=== PATIENT | female | born 1945 | race Caucasian/White ===

== ENCOUNTER 2017-10-18 13:18 | Outpatient (CLI) | payer MEDICARE, OTHER | END 2017-10-18 13:19 | disposition home or self-care (01) | LOC: BICMRI 13:18 | PROVIDERS: ATTEND Family Medicine | DX: G04.91 Myelitis, unspecified (principal); M47.896 Other spondylosis, lumbar region; M47.892 Other spondylosis, cervical region; M99.81 Other biomechanical lesions of cervical region | CPT/HCPCS: 72156; 72157; 72158 ==

== ENCOUNTER 2017-12-30 23:09 | Emergency (ER) | payer MEDICARE, OTHER ==
[2017-12-30] MEDS ORDERED: Famotidine 20 MG TAB ONE (23:52)
[2017-12-30] MEDS ORDERED: Dexamethasone 4 mg/ml Vial ONE (23:53)
== END 2017-12-31 00:30 | disposition home or self-care (01) ==
LOC: ERS 23:09
DX: T78.40XA Allergy, unspecified, initial encounter (principal); M19.90 Unspecified osteoarthritis, unspecified site; G62.9 Polyneuropathy, unspecified; Z87.891 Personal history of nicotine dependence; Z79.899 Other long term (current) drug therapy
CPT/HCPCS: 96372; J1100

== ENCOUNTER 2018-03-06 09:26 | Outpatient (CLI) | payer MEDICARE, OTHER ==
--- NOTE | 2018-03-06 12:30 | CT ---
CT RIGHT HIP WITH AND WITHOUT IV CONTRAST: INDICATIONS: Concern for right hip mass. CONTRAST: Isovue-370 70 mL. FINDINGS: There is prominent muscular atrophy of the right gluteus minimus and medius musculature, which was no t fully demonstrated on the prior exam. There is some mild suspected muscular atrophy involving the right gluteus minimus on the MR examination dated 01/22/2015. Beam scatter artifact slightly limits evaluation of the tendons. No definite drainable fluid collection is evident. No lymphadenopathy is noted. No soft tissue mass is seen within the right hip region. The visualized aspects of the bone prosthetic interface appears within normal limits for the right hip prosthesis. There are mild dege nerative changes of the right SI joint. No acute fracture is demonstrated. IMPRESSION: 1. No drainable periarticular fluid collection or mass demonstrated. 2. No lymphadenopathy is noted. 3. Worsening muscular atrophy of the right gluteus medius and minimus musculature, when compared to a prior MR examination dated 01/22/2015. POS: ALFONSO
[2018-03-06] MEDS ORDERED: Iopamidol 370 76% 100 ML VIAL ONE (14:02)
== END 2018-03-06 09:27 | disposition home or self-care (01) ==
LOC: BICCT 09:26
PROVIDERS: ATTEND Orthopaedic Surgery
DX: Z47.1 Aftercare following joint replacement surgery (principal); Z96.641 Presence of right artificial hip joint; M62.58 Muscle wasting and atrophy, not elsewhere classified, other site
CPT/HCPCS: 82565

== ENCOUNTER 2018-08-07 15:25 | Outpatient (CLI) | payer MEDICARE, OTHER ==
--- NOTE | 2018-08-07 17:05 | MRI ---
FEXAM: MRI left forefoot without contrast PROVIDED CLINICAL HISTORY: Neuroma COMPARISON: None FINDINGS: There is abnormal masslike diminished T1 signal intensity and corresponding isointense to hypointense T2 signal intensity within the second-third metatarsal interspace at the level of the metatarsal hea ds. A similar masslike focus of signal alteration is present in the third-fourth metatarsal interspac e at the level of the metatarsal heads. Conspicuous first MTP joint space loss and periarticular osteophyte formation with subcortical signal alteration involving both the great toe proximal phalanx and first metatarsal head. No focal concern ing regional marrow signal abnormality is apparent. Regional muscular signal appears normal. The dorsal extensor and plantar flexor tendons demonstrate an intact MR appearance. The MTP joint cap sules appear intact. There is no evidence for significant intermetatarsal bursal fluid. IMPRESSION: 1. Findings compatible with neuromas within the second-third and third-fourth metatarsal interspaces. 2. Severe first MTP osteoarthrosis.
== END 2018-08-07 15:26 | disposition home or self-care (01) ==
LOC: BICMRI 15:25
PROVIDERS: ATTEND Podiatrist
DX: D36.13 Benign neoplasm of peripheral nerves and autonomic nervous system of lower limb, including hip (principal); M19.072 Primary osteoarthritis, left ankle and foot

== ENCOUNTER 2018-09-23 10:19 | Day surgery (SDC) | payer MEDICARE, OTHER ==
[2018-09-20 14:07] VITALS: BMI 32.8
[2018-09-23] MEDS ORDERED: Bupivacaine PF 0.5% 30 ML VIAL ONE (10:54)
[2018-09-23] MEDS ORDERED: Neomycin-Polymyxin 1 ML AMP ONE (10:54)
[2018-09-23 11:32] LABS: Hemoglobin 13.6 g/dL (12.0-16.0); Mean Corpuscular Hemoglobin 29.8 pg (27.0-31.0); Mean Corpuscular Volume 87.6 fL (78.0-98.0); Mean Platelet Volume 8.9 fL (7.4-10.4); Platelet Count 214 thou/uL (130-400); RBC Distribution Width 12.6 % (11.5-14.5); Red Blood Cell (RBC) Count 4.58 mill/uL (4.20-5.40); White Blood Cell (WBC) Count 7.2 thou/uL (4.8-10.8)
[2018-09-23] MEDS ORDERED: Fentanyl 100 MCG/2 ML VIAL ONE (11:32)
[2018-09-23] MEDS ORDERED: methylPREDNISolone Acetate 40 mg/ml Vial ONE (12:17)
[2018-09-23] MEDS ORDERED: Lidocaine 1% PF 5 ML VIAL ONE (13:28)
[2018-09-23] MEDS ORDERED: Ondansetron PF 4 MG/2 ML Vial ONE (13:28)
[2018-09-23] MEDS ORDERED: Dexamethasone 20 MG/5 ML VIAL ONE (13:28)
[2018-09-23] MEDS ORDERED: PROPOFOL 200 MG/20 ML VIAL ONE (13:28)
[2018-09-23] MEDS ORDERED: Ketorolac Tromethamine 30 MG/ML VIAL ONE (13:28)
--- NOTE | 2018-09-24 08:04 | OP ---
DATE OF PROCEDURE: 09/23/2018 PREOPERATIVE DIAGNOSES: Neuroma, left foot second and third interspaces. POSTOPERATIVE DIAGNOSIS: Neuroma, left foot second and third interspaces. PROCEDURE PERFORMED: Excision of neuroma of left foot second and third interspaces. ANESTHESIA: General with ankle block, totalling 7 mL of 0.5% plain Marcaine. HEMOSTASIS: A well-padded pneumatic ankle tourniquet utilized for the beginning of the case, deflated after excision of neuromas. ESTIMATED BLOOD LOSS: Less than 100 mL. PATHOLOGY: Neuroma tissue sent to Pathology, labeled second interspace and labeled third interspace, separate container was used. DATABASE OPERATOR: None. DESCRIPTION OF PROCEDURE: The patient was taken to the operating room, placed on the operating room table in supine position. After general anesthesia was achieved, a left ankle block was performed. Next, the left lower extremity was scrubbed and draped in usual surgical manner. A well-padded pneumatic ankle tourniquet was placed prior to draping. Attention was directed to the dorsal left foot. A serpentine incision was centered over the third metatarsal was performed. This allowed exposure to the second and third interspaces. Using sharp and blunt dissection and electrocauterization was necessary, the surgical site was deepened into the second and third interspaces. With plantar pressure, a large neuroma mass was seen at both the second and third interspaces. Next, with care, the intermetatarsal ligament was transected at the second and third intermetatarsal spaces. Next, a quarter-inch Vel drain was passed beneath the neuromas in the second and third interspaces separately and each [place] was clamped. Attention was directed to the third interspace and using sharp and blunt dissection to trace the neuroma back to the common branch, proximal to the metatarsal heads, the nerve was transected sharply. Next, caring out the sharp and blunt dissection was carried out distally to identify the digital branches. At this time, the digital branches were transected sharply and the neuroma was taken and sent off to Pathology and marked appropriately. The same dissection was performed for the second interspace. The pneumatic tourniquet was deflated. Venous bleeding was noted. No pulsatile bleeding seen. A quarter-inch [place] drain was then placed exiting medial to the incision centrally located over the first interspace. Deep closure was performed with 3-0 Vicryl suture. Skin closure was achieved with 4-0 nylon suture. The drain was functional after skin closure. Next, a 9:1 mixture of 0.5% plain Marcaine and 1 mL of 4 mg/mL of dexamethasone phosphate was injected at the surgical site, 5 mL per second and third interspaces. Next, Xeroform dressings were applied to the incision sites. The exiting [place] drain was well-padded. Dressings were then completed with 4x4 gauze, Kylah, and an Eliezer bandage. The patient was fitted with a postoperative shoe. The patient tolerated the anesthesia and procedure well. Hyperemic effect to the foot and digits noted after deflation of the pneumatic cuff. The patient was then transferred to the recovery with vital signs stable. The patient is scheduled with me next week for the first bandage change. She will be called this evening to check on her status. Job ID: [id number]
--- NOTE | 2018-09-25 11:51 | EKG ---
Test Reason : PREOP Blood Pressure : / mmHG Vent. Rate : 070 BPM Atrial Rate : 070 BPM P-R Int : 168 ms QRS Dur : 086 ms QT Int : 408 ms P-R-T Axes : 047 004 035 degrees QTc Int : 440 ms Normal sinus rhythm Cannot rule out Inferior infarct , age undetermined Abnormal ECG When compared with ECG of 28-MAR-2016 12:46, No significant change was found Confirmed by DR. Gregory PEÑALOZA ([id number]) on 09/25/2018 11:51:00 AM Referred By: SIMONA Confirmed By:DR. Gregory PEÑALOZA
== END 2018-09-23 15:25 | disposition home or self-care (01) ==
LOC: SDC 10:19
PROVIDERS: ATTEND Podiatrist
PROC: 01BG0ZZ Excision of Tibial Nerve, Open Approach (ICD-10-PCS; principal; 2018-09-23)
PROC: 01BG0ZZ Excision of Tibial Nerve, Open Approach (ICD-10-PCS; 2018-09-23)
DX: G57.62 Lesion of plantar nerve, left lower limb (principal); M19.90 Unspecified osteoarthritis, unspecified site; Z87.891 Personal history of nicotine dependence; Z88.1 Allergy status to other antibiotic agents; Z88.2 Allergy status to sulfonamides; Z88.5 Allergy status to narcotic agent; Z88.7 Allergy status to serum and vaccine; Z88.8 Allergy status to other drugs, medicaments and biological substances
CPT/HCPCS: 36415; 85027; 88304; 93005; 93010; J0690; J1030; J1100; J1885; J2001; J2405; J2704; J3010; S0020

== ENCOUNTER 2019-11-06 08:19 | Inpatient (IN) | payer MEDICARE, OTHER ==
[2019-11-06 09:02] LABS: Hemoglobin 14.1 g/dL (12.0-16.0); Mean Corpuscular HGB CONC 32.6 g/dL (32.0-36.0); Mean Corpuscular Hemoglobin 29.5 pg (27.0-31.0); Mean Corpuscular Volume 90.4 fL (78.0-98.0); Mean Platelet Volume 8.4 fL (7.4-10.4); Platelet Count 255 thou/uL (130-400); Red Blood Cell (RBC) Count 4.79 mill/uL (4.20-5.40)
[2019-11-06 09:15] LABS: ALT (SGPT) 20 U/L (8-55); AST (SGOT) 17 U/L (5-34); Albumin 3.9 g/dL (3.4-4.8); Alkaline Phosphatase 107 U/L (40-110); Anion Gap 12 mmol/L (10-20); BUN (Urea Nitrogen) 6 mg/dL (9.8-20.1); Bilirubin, Total 0.3 mg/dL (0.2-1.2); CK (CPK) 272 U/L (29-168); Calc. Creatinine Clearance 0 mL/min (70-130); Calcium 9.1 mg/dL (7.8-10.44); Carbon Dioxide 25 mmol/L (23-31); Chloride 98 mmol/L (98-107); Estimated GFR-MDRD 78; Globulin 3.5 g/dL (2.4-3.5); Glucose 103 mg/dL (83-110); Potassium 4.3 mmol/L (3.5-5.1); Protein, Total 7.4 g/dL (6.0-8.3); Sodium 131 mmol/L (136-145)
--- NOTE | 2019-11-06 09:16 | RAD ---
Exam: Chest one view HISTORY:Productive cough, x1 week. Low O2 sats. Shortness of breath. Comparison: 03/27/2019 FINDINGS: Cardiac silhouette: Normal Aorta: Unremarkable Pulmonary vessels: Normal Costophrenic angles: Clear LUNGS: Patchy interstitial opacities throughout the lung parenchyma with a more focal right upper lob e infiltrate. Pneumothorax: None Osseous abnormalities: None IMPRESSION: Interstitial and alveolar opacities. Continued surveillance.
[2019-11-06 09:26] LABS: Band 1 % (5-11); Eosinophils 37 % (0-10); Lymphocytes 14 % (21-51); MDiff Complete? YES; Monocytes 10 % (0-10); Neutrophil 35 % (42-75); Platelet Morphology Comment Appears Adequate; RBC Morphology Normal
[2019-11-06] MEDS ORDERED: cefTRIAXone\\ROCEPHIN 2 GM VIAL ONE (09:29)
--- NOTE | 2019-11-06 10:22 | CT ---
CT angiogram chest with IV contrast and 3-D imaging HISTORY: Dyspnea. Abnormal chest radiograph. COMPARISON: 07/06/2011. FINDINGS: There is good contrast opacification pulmonary arteries and thoracic aorta with normal bran sary of the great vessels at the aortic arch. Patchy predominantly peripheral areas of interstitial thickening throughout each all the upper lobes more than the lower. There has been slight progression of gas and mild bilateral lower lobe tubular bronchiectasis since the prior exam. Scattered sub-centimeter subpleural and pleural-based nodules involve each lung. The largest is 0.8 c m at the posterior medial aspect of the right lower lobe superior segment and is unchanged from the prior exam. No pleural fluid or pneumothorax. Small hiatal hernia. IMPRESSION : No CT evidence of pulmonary embolus. No lobar pneumonia or acute inflammation is evident. Multifocal areas of interstitial lung disease gong ve progressed slightly since the 2012 exam. Multiple small bilateral nodules are overall stable. Small hiatal hernia.
[2019-11-06] MEDS ORDERED: Azithromycin 500 MG VIAL ONE (10:39)
[2019-11-06] MEDS ORDERED: Iopamidol 370 76% 100 ML VIAL ONE (11:26)
[2019-11-06] MEDS ORDERED: Acetaminophen 325 MG TAB PO PRN (14:15)
[2019-11-06] MEDS ORDERED: Ondansetron ODT 4 MG TAB SL PRN (14:15)
[2019-11-06 15:19] VITALS: BMI 31.3
[2019-11-06] MEDS ORDERED: methylPREDNISolone Sod Succ 40 MG VIAL IVP SCH (15:30)
[2019-11-06] MEDS: Guaifenesin DM 100-10/5 ML UDCUP PO PRN (18:35)
[2019-11-06] MEDS: Famotidine 20 MG TAB PO SCH (21:00)
[2019-11-07 05:35] LABS: #Basophils 0.1 thou/uL (0.0-0.2); #Eosinphils 0.2 thou/uL (0.0-0.7); #Lymphocytes 2.8 thou/uL (1.20-3.40); #Monocytes 1.2 thou/uL (0.11-0.59); #Neutrophils 8.4 thou/uL (1.40-6.50); %Basophils 0.8 % (0.0-1.0); %Eosinophils 1.5 % (0.0-10.0); %Lymphocytes 22.1 % (21.0-51.0); %Monocytes 9.4 % (0.0-10.0); %Neutrophils 66.2 % (42.0-75.0); Hemoglobin 13.7 g/dL (12.0-16.0); Mean Corpuscular HGB CONC 32.7 g/dL (32.0-36.0); Mean Corpuscular Hemoglobin 29.1 pg (27.0-31.0); Mean Corpuscular Volume 89.1 fL (78.0-98.0); Mean Platelet Volume 8.1 fL (7.4-10.4); Platelet Count 284 thou/uL (130-400); RBC Distribution Width 12.1 % (11.5-14.5); White Blood Cell (WBC) Count 12.7 thou/uL (4.8-10.8)
[2019-11-07 05:54] LABS: Anion Gap 12 mmol/L (10-20); BUN (Urea Nitrogen) 7 mg/dL (9.8-20.1); Calc. Creatinine Clearance 99 mL/min (70-130); Calcium 9.3 mg/dL (7.8-10.44); Carbon Dioxide 24 mmol/L (23-31); Chloride 101 mmol/L (98-107); Estimated GFR-MDRD 82; Glucose 109 mg/dL (83-110); Potassium 4.2 mmol/L (3.5-5.1); Sodium 133 mmol/L (136-145)
[2019-11-07] MEDS: Acetaminophen 325 MG TAB PO PRN (09:26)
[2019-11-07] MEDS: methylPREDNISolone Sod Succ 40 MG VIAL IVP SCH (09:27)
[2019-11-07] MEDS: Famotidine 20 MG TAB PO SCH (09:31)
[2019-11-07] MEDS: Enoxaparin Sodium 40 MG/0.4 ML SYRINGE SC SCH (09:32)
--- NOTE | 2019-11-07 10:14 | HP ---
PRIMARY CARE PHYSICIAN: Dr. Rincon. CHIEF COMPLAINT: "My cough won't go away." HISTORY OF PRESENT ILLNESS: The patient is a pleasant 73-year-old female with no significant past medical history, who presents to the ER for cough and congestion x1 week. She states that after the [place] sand blew in last Sunday she has had an unrelenting cough with congestion since the following day. She attempted to see her primary care physician, but they wanted to rule out COVID first, so she went to the respiratory clinic and was swabbed. She just received those results back this morning, which were negative. Since that time, she has been taking Mucinex DM at home which she states did not help at all. Her highest temperature recorded was 100 degrees, and was positive for sinus congestion, and she feels tired and she was not able to sleep at night. She is having to sleep sitting up due to the drainage and her cough, she has not slept much since last . Denies any abnormal bruising, rashes, or sick contacts. She states when she is coughing up, it is tinged slightly yellow, but mostly clear. Denies ear pain or any drainage. A few days ago she felt short of breath so a friend let her borrow a neb machine and an oxygen tank. She has been on 2L at home for approximately 3 days when she normally does not require oxygen and has been taking 4-5 duoneb treatments daily which do provide some relief. Today, in the ER, they performed lab work, chest x-ray, chest CTA, and a COVID swab. PAST MEDICAL HISTORY: None. PAST SURGICAL HISTORY: Hip surgery. ALLERGIES: BACTRIM, CODEINE, LEVAQUIN, PLAQUENIL, TESSALON PERLES, AND TETANUS. MEDICATIONS: No home medications. SOCIAL HISTORY: The patient lives at home. She is retired. She does drink wine nightly. Denies any tobacco or drug usage. FAMILY HISTORY: Negative for anything. REVIEW OF SYSTEMS: All other review of systems are negative unless noted in the HPI. PHYSICAL EXAMINATION: VITAL SIGNS: Temperature 97.7, pulse 83, respiratory rate 20, O2 saturation 96 % on 2 L, blood pressure 180/78. HEENT: Head atraumatic and normocephalic. PERRLA. Extraocular muscles intact. NECK: Supple. Trachea midline. No lymphadenopathy. RESPIRATORY: Right lobe - coarse rhonchi that is the most pronounced. Bilateral lower lobes - also coarse. Even chest rise. CARDIOVASCULAR: Regular rate and rhythm. No murmurs. No gallops. No rubs. ABDOMEN: Soft and nontender. No masses. EXTREMITIES: No clubbing, no cyanosis, no edema. NEUROLOGIC: No focal deficits. The patient is alert and oriented to person, place, and time. PSYCHIATRIC: Normal affect. Normal behavior, although appears very fatigued. LABORATORY DATA: White blood cell count 17, hemoglobin 14.1, hematocrit 43.3, neutrophils 35, bands 1, eosinophils 37. There is a smear, path report pending. Sodium 131, potassium 4.3, BUN 6, creatinine 0.73, GFR 78, glucose 103, creatine kinase 272, alkaline phosphatase 107, Troponin 0.020. COVID exam - negative here and through respiratory clinic. DIAGNOSTIC DATA: Chest x-ray shows interstitial nodular opacities; continue surveillance. Chest CTA showed no CT evidence of pulmonary embolus. No lobar pneumonia or acute inflammation is evident. Multifocal interstitial lung disease has progressed slightly since the 2012 exam. Multiple small bilateral nodules are overall stable. Small hiatal hernia. IMPRESSION AND PLAN: 1. Cough with hypoxia and pneumonia versus interstitial lung disease. We will continue Zithromax that was started in the ER along with steroids and scheduled breathing treatments. The patient stated that she has had a little bit of relief from the breathing treatments. We will continue to monitor her oxygen needs overnight and possibly consult Pulmonary. 2. Hypertension. The patient states her blood pressure was never as high as it currently is. May need to cover with p.r.n. antihypertensives if this continues and continue to monitor. 3. Gastrointestinal and deep vein thrombosis prophylaxes are placed. The patient wishes to be a full code. Her surrogate decision maker is her daughter, Annemarie Figueroa. The patient has been discussed with Dr. Ruggiero. Job ID: [id number] [id number]
[2019-11-07] MEDS: Guaifenesin DM 100-10/5 ML UDCUP PO PRN (11:21)
[2019-11-07] MEDS: Azithromycin 500 MG in Sodium Chloride 0.9% 250 ML 250 ML IVPB SCH (11:21)
--- NOTE | 2019-11-07 16:53 | PDOC.HOSPP ---
- Subjective Encounter Date: 11/07/19 Encounter Time: 12:30 Subjective: pt up in bed feels better - Objective Vital Signs & Weight: Vital Signs (12 hours) Temp Pulse Resp BP Pulse Ox 11/07/19 14:07 82 12 11/07/19 08:00 97.8 F 77 20 171/72 H 96 11/07/19 06:56 83 14 11/07/19 06:37 97.8 F 75 17 131/63 94 L Weight Weight 200 lb I&O: 11/06/19 11/07/19 11/08/19 06:59 06:59 06:59 Intake Total 230 Balance 230 Result Diagrams: 11/07/19 05:28 11/07/19 05:28 Hospitalist ROS - Review of Systems Cardiovascular: denies: chest pain, palpitations, orthopnea, paroxysmal noc. dyspnea, edema, light headedness, other Gastrointestinal: denies: nausea, vomiting, abdominal pain, diarrhea, constipation, melena, hematochezia, other Genitourinary: denies: dysuria, frequency, incontinence, hematuria, retention, other - Medication Medications: Active Medications Generic Name Dose Route Start Last Admin Trade Name Freq PRN Reason Stop Dose Admin Acetaminophen 650 mg 11/07/19 08:58 11/07/19 09:26 Tylenol PO 650 mg Q4H PRN Administration Headache/Fever or Pain Albuterol/Ipratropium 3 ml 11/06/19 18:30 11/07/19 14:07 Duoneb NEB 3 ml [id number] JENNIFER Administration Enoxaparin Sodium 40 mg 11/07/19 09:00 11/07/19 09:32 Lovenox SC 40 mg 0900 JENNIFER Administration Famotidine 20 mg 11/06/19 21:00 11/07/19 09:31 Pepcid PO Not Given BID JENNIFER Guaifenesin/Dextromethorphan 15 ml 11/06/19 15:06 11/07/19 11:21 Robitussin Dm PO 15 ml Q4H PRN Administration Cough Azithromycin 500 mg/ Sodium 250 mls @ 250 mls/hr 11/07/19 11:00 11/07/19 11: 21 Chloride IVPB 250 mls 1100 JENNIFER Administration Methylprednisolone Sodium Succinate 40 mg 11/07/19 09:00 11/07/19 09:27 Solu-Medrol IVP 40 mg DAILY JENNIFER Administration - Exam Heart: negative: RRR, no murmur, no gallops, no rubs, normal peripheral pulses, irregular, diminshed peripheral pulses, murmur present, II/IV, III/IV Respiratory: rhonchi Gastrointestinal: negative: soft, non-tender, non-distended, normal bowel sounds , no palpable masses, no hepatomegaly, no splenomegaly, no bruit, no guarding, no rigidity, tender to palpation, distended, diminished bowl sounds, voluntary guarding Extremities: negative: no cyanosis, no clubbing, no edema, 1+ LE edema, 2+ LE edema, clubbing Hosp A/P (1) Acute respiratory failure with hypoxia Code(s): J96.01 - ACUTE RESPIRATORY FAILURE WITH HYPOXIA Status: Acute (2) SOB (shortness of breath) Code(s): R06.02 - SHORTNESS OF BREATH Status: Acute (3) Pulmonary nodule Code(s): R91.1 - SOLITARY PULMONARY NODULE Status: Acute (4) Interstitial lung disease Code(s): J84.9 - INTERSTITIAL PULMONARY DISEASE, UNSPECIFIED Status: Acute - Plan will continue steroids and nebs for now. she appears well today. she did follow with pulmonary many years ago. She was not aware of her lung changes. No hx of smoking or any other medical hx. she wants a nebulizer on discharge. she will need a oxygen walk test.
[2019-11-07] MEDS ORDERED: Amlodipine 5 MG TAB PO SCH (17:30)
[2019-11-07] MEDS: Diabetic Tussin DM 5 ML UDCUP PO PRN (21:02)
[2019-11-08] MEDS: Diabetic Tussin DM 5 ML UDCUP PO PRN (05:58)
[2019-11-08] MEDS: Acetaminophen 325 MG TAB PO PRN ×2 (05:58→18:47)
[2019-11-08 06:28] LABS: #Basophils 0.2 thou/uL (0.0-0.2); #Eosinphils 0.4 thou/uL (0.0-0.7); #Lymphocytes 4.6 thou/uL (1.20-3.40); #Monocytes 1.4 thou/uL (0.11-0.59); #Neutrophils 7.8 thou/uL (1.40-6.50); %Basophils 1.1 % (0.0-1.0); %Eosinophils 3.1 % (0.0-10.0); %Lymphocytes 32.1 % (21.0-51.0); %Monocytes 9.5 % (0.0-10.0); %Neutrophils 54.2 % (42.0-75.0); Hemoglobin 14.2 g/dL (12.0-16.0); Mean Corpuscular HGB CONC 33.2 g/dL (32.0-36.0); Mean Corpuscular Hemoglobin 29.6 pg (27.0-31.0); Mean Corpuscular Volume 89.2 fL (78.0-98.0); Mean Platelet Volume 8.6 fL (7.4-10.4); Platelet Count 312 thou/uL (130-400); RBC Distribution Width 12.2 % (11.5-14.5); White Blood Cell (WBC) Count 14.3 thou/uL (4.8-10.8)
[2019-11-08 06:53] LABS: Anion Gap 11 mmol/L (10-20); BUN (Urea Nitrogen) 11 mg/dL (9.8-20.1); Calc. Creatinine Clearance 92 mL/min (70-130); Calcium 9.3 mg/dL (7.8-10.44); Carbon Dioxide 28 mmol/L (23-31); Chloride 100 mmol/L (98-107); Estimated GFR-MDRD 74; Glucose 90 mg/dL (83-110); Potassium 3.5 mmol/L (3.5-5.1); Sodium 135 mmol/L (136-145)
[2019-11-08] MEDS: Amlodipine 5 MG TAB PO SCH (08:10)
[2019-11-08] MEDS: Enoxaparin Sodium 40 MG/0.4 ML SYRINGE SC SCH ×2 (08:11→11:09)
[2019-11-08] MEDS: methylPREDNISolone Sod Succ 40 MG VIAL IVP SCH (08:11)
[2019-11-08] MEDS: Azithromycin 500 MG in Sodium Chloride 0.9% 250 ML 250 ML IVPB SCH (11:08)
[2019-11-08] MEDS ORDERED: Ondansetron ORAL SOLN. 4 MG/5 ML UDCUP PO PRN (11:34)
[2019-11-08] MEDS ORDERED: Polyethylene Glycol 3350 17 GM Packet PO SCH (11:45)
--- NOTE | 2019-11-08 19:07 | PDOC.HOSPP ---
- Subjective Encounter Date: 11/08/19 Encounter Time: 10:00 Subjective: no overnight events. this morning, endorses feeling unwell overall because doesn 't use oxygen at home and doesn't get short of breath with relatively little exertion. educated regarding results of CT scan showing progression of interstitial lung disease. Also endorses not having a bowel movement for 4 days. otherwise no complaints - Objective Vital Signs & Weight: Vital Signs (12 hours) Temp Pulse Resp BP Pulse Ox 11/08/19 17:31 98.0 F 82 18 179/71 H 93 L 11/08/19 14:11 85 14 11/08/19 12:18 97.9 F 78 18 173/82 H 94 L 11/08/19 10:30 70 12 11/08/19 10:15 177/80 H 11/08/19 08:00 98 11/08/19 07:43 70 12 98 11/08/19 07:38 98.0 F 70 20 170/79 H 98 Weight Weight 200 lb I&O: 11/07/19 11/08/19 11/09/19 06:59 06:59 06:59 Intake Total 230 Balance 230 Result Diagrams: 11/08/19 05:49 11/08/19 05:49 Hospitalist ROS - Review of Systems Constitutional: denies: fever, chills, sweats, malaise, other Respiratory: reports: cough (improved), dry, shortness of breath, SOB with excertion. denies: hemoptysis, pleuritic pain, sputum, wheezing Cardiovascular: denies: chest pain, palpitations, orthopnea, paroxysmal noc. dyspnea - Medication Medications: Active Medications Generic Name Dose Route Start Last Admin Trade Name Freq PRN Reason Stop Dose Admin Acetaminophen 650 mg 11/07/19 08:58 11/08/19 18:47 Tylenol PO 650 mg Q4H PRN Administration Headache/Fever or Pain Albuterol/Ipratropium 3 ml 11/06/19 18:30 11/08/19 14:11 Duoneb NEB 3 ml [id number] JENNIFER Administration Amlodipine Besylate 5 mg 11/08/19 09:00 11/08/19 08:10 Norvasc PO 5 mg DAILY JENNIFER Administration Enoxaparin Sodium 40 mg 11/07/19 09:00 11/08/19 11:09 Lovenox SC 40 mg 0900 JENNIFER Administration Guaifenesin/Dextromethorphan 15 ml 11/07/19 20:41 11/08/19 05:58 Diabetic Tussin Dm PO 15 ml Q4H PRN Administration Cough Pantoprazole Sodium 40 mg 11/08/19 09:00 11/08/19 08:10 Protonix PO 40 mg DAILY JENNIFER Administration - Exam General Appearance: NAD, awake alert Neck: no JVD Heart: RRR, no murmur, no gallops Respiratory: CTAB, no wheezes, no rales, no ronchi Gastrointestinal: soft, non-tender, non-distended, normal bowel sounds Extremities: no edema Psychiatric: normal affect, normal behavior, A&O x 3 Hosp A/P - Plan #shortness of breath -improving; does not require oxygen -CT thorax shows b/l upper reticulonodular ILD; possibly sarcoidosis/[facility]/ pneumonitis -apparently was followed by laser/electro optics technician a few years ago -f/u with laser/electro optics technician for further workup. May need PFTs/HRCT/BAL -stopped antibiotics and steroids #constipation -started bowel regimen ELOS: 1 night
[2019-11-08] MEDS ORDERED: Chlorthalidone 25 MG TAB PO SCH (19:15)
[2019-11-08] MEDS: Senokot S 8.6-50 MG TAB PO SCH (20:12)
[2019-11-09 06:31] LABS: Anion Gap 13 mmol/L (10-20); BUN (Urea Nitrogen) 12 mg/dL (9.8-20.1); Calc. Creatinine Clearance 93 mL/min (70-130); Calcium 9.2 mg/dL (7.8-10.44); Carbon Dioxide 25 mmol/L (23-31); Chloride 98 mmol/L (98-107); Estimated GFR-MDRD 75; Glucose 90 mg/dL (83-110); Potassium 3.8 mmol/L (3.5-5.1); Sodium 132 mmol/L (136-145)
[2019-11-09] MEDS: Acetaminophen 325 MG TAB PO PRN (07:02)
[2019-11-09 07:24] LABS: Band 1 % (5-11); Eosinophils 2 % (0-10); Hemoglobin 13.5 g/dL (12.0-16.0); Lymphocytes 42 % (21-51); MDiff Complete? YES; Mean Corpuscular HGB CONC 33.7 g/dL (32.0-36.0); Mean Corpuscular Hemoglobin 29.9 pg (27.0-31.0); Mean Corpuscular Volume 88.8 fL (78.0-98.0); Mean Platelet Volume 7.9 fL (7.4-10.4); Monocytes 7 % (0-10); Neutrophil 47 % (42-75); Platelet Count 356 thou/uL (130-400); RBC Distribution Width 12.1 % (11.5-14.5); Red Blood Cell (RBC) Count 4.53 mill/uL (4.20-5.40); White Blood Cell (WBC) Count 16.3 thou/uL (4.8-10.8)
[2019-11-09 08:17] VITALS: BP 160/77; TEMP 97.6
[2019-11-09] MEDS: Enoxaparin Sodium 40 MG/0.4 ML SYRINGE SC SCH (08:24)
[2019-11-09] MEDS: Amlodipine 5 MG TAB PO SCH (08:24)
[2019-11-09] MEDS: Senokot S 8.6-50 MG TAB PO SCH (08:24)
[2019-11-09] MEDS ORDERED: Polyethylene Glycol 3350 17 GM Packet PO SCH (09:00)
[2019-11-09] MEDS ORDERED: Chlorthalidone 25 MG TAB PO SCH (09:00)
--- NOTE | 2019-11-09 15:59 | DIS ---
DATE OF ADMISSION: 11/06/2019 DATE OF DISCHARGE: 11/09/2019 HOSPITAL COURSE: Ms. Gibson is a 73-year-old female with a medical history of interstitial lung disease, who presented for shortness of breath, cough for a week. She was diagnosed with progressively worsening interstitial lung disease, mostly in the upper lobes. During her inpatient stay, she was ruled out for COVID and was treated with antibiotics for community-acquired pneumonia. She improved promptly and prior to discharge, she was requested to make an appointment with a scudding inspector in an [facility] in order to further evaluate and manage her progressively worsening interstitial lung disease. Prior to discharge, she had a home oxygen evaluation, which deemed her not to fit for home oxygen. She was discharged hemodynamically stable, breathing and saturating well on room air. PHYSICAL EXAMINATION: VITAL SIGNS: Blood pressure 160/77, pulse 77, respiratory rate 16, oxygen saturation 94% on room air, and temperature 97.6. GENERAL APPEARANCE: No apparent distress. Awake and alert. NECK: No JVD. HEART: Regular rate and rhythm. No murmurs, gallops, or rubs. RESPIRATORY: Clear to auscultation bilaterally. No wheezes, rales, or rhonchi. GASTROINTESTINAL: Soft, nontender, and nondistended. Normal bowel sounds. EXTREMITIES: No edema. PSYCHIATRIC: Proper mood and affect. Alert and oriented x3. MEDICATION LIST: New medications; Proventil two puffs inhalation q.6 hours p.r.n. shortness of breath, pending appointment with pulmonology. Continued medications: 1. Vitamin D3. 2. Coenzyme Q10. 3. Vitamin A. 4. Vitamin E. Modified medications: No modified medications. Job ID: [id number]
== END 2019-11-09 13:01 | disposition home or self-care (01) | DRG 196 ==
LOC: ERS 08:19 → T4-A 09:43
PROVIDERS: ADMIT Internal Medicine; ATTEND Internal Medicine
DX: J84.9 Interstitial pulmonary disease, unspecified (principal); J18.9 Pneumonia, unspecified organism; J96.01 Acute respiratory failure with hypoxia; Z20.828 Contact with and (suspected) exposure to other viral communicable diseases; M19.90 Unspecified osteoarthritis, unspecified site; G62.9 Polyneuropathy, unspecified; Z96.641 Presence of right artificial hip joint; R91.1 Solitary pulmonary nodule; K59.00 Constipation, unspecified; Z90.710 Acquired absence of both cervix and uterus; Z87.891 Personal history of nicotine dependence; Z88.1 Allergy status to other antibiotic agents; Z88.7 Allergy status to serum and vaccine; Z88.8 Allergy status to other drugs, medicaments and biological substances; Z79.899 Other long term (current) drug therapy
CPT/HCPCS: 36415; 71045; 71275; 80048; 80053; 82550; 84484; 85025; 85060; 87040; 93005; 94640; 94760; 96365; 96366; 96367; J0456; J0696; J1650; J2920; J7050; J7620; Q9967; U0002

== ENCOUNTER 2021-02-01 10:10 | Outpatient (CLI) | payer MEDICARE | END 2021-02-01 10:11 | disposition home or self-care (01) | LOC: BICMRI 10:10 | PROVIDERS: ATTEND Anesthesiology Pain Medicine | DX: M48.02 Spinal stenosis, cervical region (principal); M47.812 Spondylosis without myelopathy or radiculopathy, cervical region | CPT/HCPCS: 72052; 72141 ==

== ENCOUNTER 2021-12-15 08:12 | Outpatient (CLI) | payer MEDICARE | END 2021-12-15 08:13 | disposition home or self-care (01) | LOC: BICCT 08:12 | PROVIDERS: ATTEND Internal Medicine Critical Care Medicine | DX: J84.9 Interstitial pulmonary disease, unspecified (principal) | CPT/HCPCS: 71250 ==

== ENCOUNTER 2022-08-03 08:39 | Outpatient (CLI) | payer MEDICARE | END 2022-08-03 08:40 | disposition home or self-care (01) | LOC: RAD 08:39 | PROVIDERS: ATTEND Internal Medicine Critical Care Medicine | DX: R06.00 Dyspnea, unspecified (principal); R91.8 Other nonspecific abnormal finding of lung field | CPT/HCPCS: 71046 ==

== ENCOUNTER 2022-08-14 10:29 | Inpatient (IN) | payer MEDICARE ==
[~2022-08-14 10:29] MED LIST: Iopamidol-370 76% 500 ML MDV (1 ML CHARGE) ONE
[2022-08-14 11:15] LABS: ALT (SGPT) 14 U/L (8-55); AST (SGOT) 9 U/L (5-34); Albumin 3.2 g/dL (3.4-4.8); Alkaline Phosphatase 126 U/L (40-110); Anion Gap 13 mmol/L (10-20); BUN (Urea Nitrogen) 12 mg/dL (9.8-20.1); Bilirubin, Total 0.4 mg/dL (0.2-1.2); Calc. Creatinine Clearance 0 mL/min (70-130); Calcium 8.8 mg/dL (7.8-10.44); Carbon Dioxide 24 mmol/L (23-31); Chloride 98 mmol/L (98-107); Estimated GFR 73; Globulin 2.9 g/dL (2.4-3.5); Glucose 85 mg/dL (83-110); Potassium 3.8 mmol/L (3.5-5.1); Protein, Total 6.1 g/dL (5.8-8.1); Sodium 131 mmol/L (136-145)
[2022-08-14 11:26] LABS: #Basophils 0.1 thou/uL (0.0-0.2); #Eosinphils 0.6 thou/uL (0.0-0.7); #Lymphocytes 3.3 thou/uL (1.20-3.40); #Monocytes 1.8 thou/uL (0.11-0.59); #Neutrophils 7.6 thou/uL (1.40-6.50); %Eosinophils 4.5 % (0.0-10.0); %Lymphocytes 24.6 % (21.0-51.0); %Monocytes 13.2 % (0.0-10.0); %Neutrophils 56.6 % (42.0-75.0); Hemoglobin 14.2 g/dL (12.0-16.0); Mean Corpuscular HGB CONC 33.3 g/dL (32.0-36.0); Mean Corpuscular Hemoglobin 30.2 pg (27.0-31.0); Mean Corpuscular Volume 90.7 fl (78.0-98.0); Mean Platelet Volume 8.4 fL (7.4-10.4); Platelet Count 240 10x3/uL (130-400); RBC Distribution Width 12.4 % (11.5-14.5); White Blood Cell (WBC) Count 13.5 10x3/uL (4.8-10.8)
[2022-08-14] MEDS ORDERED: Ondansetron PF 4 MG/2 ML Vial ONE (11:55)
[2022-08-14] MEDS ORDERED: Famotidine 20 MG TAB ONE (11:55)
[2022-08-14 12:23] LABS: Bacteria/HPF 4+ HPF (None Seen); Bilirubin Negative (Negative); Blood, Urine 2+ (Negative); Clarity Turbid (Clear); Glucose, Urine (Dipstick) Normal (Negative); Ketone, Urine Trace mg/dL (Negative); Leukocyte 500 Leu/uL (Negative); Nitrite 2+ (Negative); Protein, Urine (Dipstick) 10 mg/dL (Neg-Trace); Specific Gravity, Urine 1.013 (1.002-1.036); Squamous Epithelial None Seen HPF (0-3); Urobilinogen Normal mg/dL (Less than 2); WBC/HPF Greater than 50 HPF (0-3)
[2022-08-14] MEDS ORDERED: Calcium Carbonate 500 MG ChewTAB PO PRN (14:22)
[2022-08-14] MEDS ORDERED: Montelukast Sodium 10 mg Tablet PO PRN (14:28)
[2022-08-14] MEDS ORDERED: Albuterol HFA (OR) 200 PUFF INH INH PRN (14:42)
[2022-08-14] MEDS ORDERED: Saccharomyces boulardii 250 MG CAP PO SCH (15:00)
[2022-08-14] MEDS ORDERED: metroNIDAZOLE 500 MG in Premix Bag 1 BAG IVPB SCH (15:00)
[2022-08-14 17:16] VITALS: BMI 31.0
[2022-08-14] MEDS: Vancomycin HCl 125 MG/5 ML (BATCHED) UDCUP PO SCH ×2 (17:23→20:05)
[2022-08-14] MEDS: Sodium Chloride 0.9% 1,000 ML IV SCH (17:23)
[2022-08-14] MEDS: Ondansetron PF 4 MG/2 ML Vial IVP PRN ×2 (17:24→22:24)
[2022-08-14] MEDS: metroNIDAZOLE 500 MG in Premix Bag 1 BAG IVPB SCH (21:06)
[2022-08-14] MEDS: Acetaminophen 325 MG TAB PO PRN (22:24)
[2022-08-15] MEDS: Vancomycin HCl 125 MG/5 ML (BATCHED) UDCUP PO SCH ×4 (03:39→21:01)
[2022-08-15] MEDS: Sodium Chloride 0.9% 1,000 ML IV SCH ×2 (03:43→08:20)
[2022-08-15] MEDS: metroNIDAZOLE 500 MG in Premix Bag 1 BAG IVPB SCH ×3 (05:06→21:03)
[2022-08-15 07:12] LABS: Hemoglobin 13.3 g/dL (12.0-16.0); Mean Corpuscular HGB CONC 32.3 g/dL (32.0-36.0); Mean Corpuscular Hemoglobin 29.9 pg (27.0-31.0); Mean Corpuscular Volume 92.5 fl (78.0-98.0); Mean Platelet Volume 8.3 fL (7.4-10.4); Platelet Count 252 10x3/uL (130-400); RBC Distribution Width 12.5 % (11.5-14.5); Red Blood Cell (RBC) Count 4.47 mill/uL (4.20-5.40); White Blood Cell (WBC) Count 9.6 10x3/uL (4.8-10.8)
[2022-08-15 07:26] LABS: ALT (SGPT) 9 U/L (8-55); AST (SGOT) 11 U/L (5-34); Albumin 2.8 g/dL (3.4-4.8); Alkaline Phosphatase 115 U/L (40-110); Anion Gap 13 mmol/L (10-20); BUN (Urea Nitrogen) 8 mg/dL (9.8-20.1); Bilirubin, Total 0.3 mg/dL (0.2-1.2); Calc. Creatinine Clearance 88 mL/min (70-130); Calcium 8.3 mg/dL (7.8-10.44); Carbon Dioxide 19 mmol/L (23-31); Chloride 104 mmol/L (98-107); Estimated GFR 81; Globulin 2.6 g/dL (2.4-3.5); Glucose 79 mg/dL (83-110); Potassium 3.8 mmol/L (3.5-5.1); Protein, Total 5.4 g/dL (5.8-8.1); Sodium 132 mmol/L (136-145)
[2022-08-15] MEDS: Ondansetron PF 4 MG/2 ML Vial IVP PRN ×2 (07:30→15:33)
[2022-08-15] MEDS: CO Q-10 CAPSULE 100 MG PO SCH (08:18)
[2022-08-15] MEDS: Cholecalciferol 1,000 UNITS (25 MCG) TAB PO SCH (08:19)
[2022-08-15] MEDS: Saccharomyces boulardii 250 MG CAP PO SCH (08:19)
[2022-08-15] MEDS: Acetaminophen 325 MG TAB PO PRN (08:25)
[2022-08-15 09:18] LABS: Band 5 % (5-11); Eosinophils 9 % (0-10); Lymphocytes 24 % (21-51); MDiff Complete? YES; Monocytes 15 % (0-10); Neutrophil 47 % (42-75); Platelet Morphology Comment Appears Adequate; RBC Morphology Normal
[2022-08-15] MEDS: cefTRIAXone\\ROCEPHIN 1 GM in Sodium Chloride 0.9% 100 ML IVPB SCH (11:22)
[2022-08-15 14:20] LABS: Campy jejuni + coli by PCR Negative (Negative); STEC Shiga Toxin 1+2 Negative (Negative); Salmonella spp. by PCR Negative (Negative); Shigella spp + EIEC by PCR Negative (Negative)
[2022-08-15] MEDS: Ondansetron ODT 4 MG TAB PO PRN (21:01)
[2022-08-16] MEDS: Vancomycin HCl 125 MG/5 ML (BATCHED) UDCUP PO SCH ×4 (02:28→20:21)
[2022-08-16] MEDS: Ondansetron ODT 4 MG TAB PO PRN ×2 (04:06→20:14)
[2022-08-16] MEDS: metroNIDAZOLE 500 MG in Premix Bag 1 BAG IVPB SCH ×3 (05:55→20:23)
[2022-08-16] MEDS: cefTRIAXone\\ROCEPHIN 1 GM in Sodium Chloride 0.9% 100 ML IVPB SCH (08:34)
[2022-08-16] MEDS: Saccharomyces boulardii 250 MG CAP PO SCH (08:35)
[2022-08-16] MEDS: CO Q-10 CAPSULE 100 MG PO SCH (08:35)
[2022-08-16] MEDS: Cholecalciferol 1,000 UNITS (25 MCG) TAB PO SCH (08:35)
[2022-08-16 10:34] LABS: Anion Gap 11 mmol/L (10-20); BUN (Urea Nitrogen) 5 mg/dL (9.8-20.1); Calc. Creatinine Clearance 101 mL/min (70-130); Calcium 8.2 mg/dL (7.8-10.44); Carbon Dioxide 23 mmol/L (23-31); Chloride 103 mmol/L (98-107); Estimated GFR 90; Glucose 93 mg/dL (83-110); Potassium 3.7 mmol/L (3.5-5.1); Sodium 133 mmol/L (136-145)
[2022-08-16] MEDS: Acetaminophen 325 MG TAB PO PRN ×2 (12:37→20:20)
[2022-08-17] MEDS: Vancomycin HCl 125 MG/5 ML (BATCHED) UDCUP PO SCH ×2 (03:03→09:40)
[2022-08-17] MEDS: Ondansetron ODT 4 MG TAB PO PRN (04:14)
[2022-08-17] MEDS: Acetaminophen 325 MG TAB PO PRN (04:21)
[2022-08-17] MEDS: metroNIDAZOLE 500 MG in Premix Bag 1 BAG IVPB SCH (05:06)
[2022-08-17] MEDS: Cholecalciferol 1,000 UNITS (25 MCG) TAB PO SCH (08:21)
[2022-08-17] MEDS: Saccharomyces boulardii 250 MG CAP PO SCH (08:21)
[2022-08-17] MEDS: CO Q-10 CAPSULE 100 MG PO SCH (08:21)
[2022-08-17] MEDS: cefTRIAXone\\ROCEPHIN 1 GM in Sodium Chloride 0.9% 100 ML IVPB SCH (10:50)
[2022-08-17 12:33] VITALS: BP 148/65; TEMP 97.6
== END 2022-08-17 14:00 | disposition home or self-care (01) | DRG 372 ==
LOC: SUATTDRO 10:29 → ERS 10:29 → ERHOLD 14:48 → T4-A 16:52 → OBSVTOIN 08-15 14:23
PROVIDERS: ADMIT Internal Medicine; ATTEND Internal Medicine
DX: A04.72 Enterocolitis due to Clostridium difficile, not specified as recurrent (principal); E87.1 Hypo-osmolality and hyponatremia; K57.32 Diverticulitis of large intestine without perforation or abscess without bleeding; N39.0 Urinary tract infection, site not specified; E86.0 Dehydration; Z88.5 Allergy status to narcotic agent; Z88.2 Allergy status to sulfonamides; Z88.1 Allergy status to other antibiotic agents; Z88.7 Allergy status to serum and vaccine; Z79.899 Other long term (current) drug therapy
CPT/HCPCS: 36415; 71045; 74177; 80048; 80053; 81003; 81015; 85025; 87324; 87449; 87505; 93005; 96374; J0696; J0744; J1650; J2405; J3490; J7050; Q0162; Q9967

== ENCOUNTER 2023-01-22 07:24 | Outpatient (CLI) | payer MEDICARE | END 2023-01-22 07:25 | disposition home or self-care (01) | LOC: BICCT 07:24 | PROVIDERS: ATTEND Internal Medicine Critical Care Medicine | DX: J84.9 Interstitial pulmonary disease, unspecified (principal); R91.8 Other nonspecific abnormal finding of lung field; J98.4 Other disorders of lung; J47.9 Bronchiectasis, uncomplicated | CPT/HCPCS: 71250 ==

== ENCOUNTER 2023-05-28 08:45 | Outpatient (CLI) | payer MEDICARE | END 2023-05-28 08:46 | disposition home or self-care (01) | LOC: RAD 08:45 | PROVIDERS: ATTEND Internal Medicine Critical Care Medicine | DX: R06.00 Dyspnea, unspecified (principal) | CPT/HCPCS: 71046 ==

== ENCOUNTER 2023-05-29 09:54 | Outpatient (CLI) | payer MEDICARE | END 2023-05-29 09:55 | disposition home or self-care (01) | LOC: BICMRI 09:54 | PROVIDERS: ATTEND Surgery | DX: M47.22 Other spondylosis with radiculopathy, cervical region (principal); M48.02 Spinal stenosis, cervical region | CPT/HCPCS: 72125; 72141 ==

== ENCOUNTER 2023-09-17 08:37 | Outpatient (CLI) | payer MEDICARE | END 2023-09-17 08:38 | disposition home or self-care (01) | LOC: BICRAD 08:37 | PROVIDERS: ATTEND Physician Assistant | DX: M48.02 Spinal stenosis, cervical region (principal); M47.812 Spondylosis without myelopathy or radiculopathy, cervical region; Z98.1 Arthrodesis status | CPT/HCPCS: 72040 ==

== ENCOUNTER 2023-10-28 13:48 | Emergency (ER) | payer MEDICARE ==
[2023-10-28 14:23] LABS: #Basophils 0.08 10x3/uL (0.0-0.2); %Basophils 0.9 % (0.0-1.0); %Lymphocytes 23.7 % (21.0-51.0); %Monocytes 6.8 % (0.0-10.0); %Neutrophils 46.2 % (42.0-75.0); Hematocrit 38.6 % (36.0-47.0); Hemoglobin 12.8 g/dL (12.0-16.0); Mean Corpuscular HGB CONC 33.2 g/dL (32.0-36.0); Mean Corpuscular Hemoglobin 29.2 pg (27.0-31.0); Mean Corpuscular Volume 88.1 fL (78.0-98.0); Platelet Count 317 10x3/uL (130-400); RBC Distribution Width 12.9 % (11.5-14.5); Red Blood Cell (RBC) Count 4.38 mill/uL (4.20-5.40)
[2023-10-28 14:40] LABS: ALT (SGPT) 11 U/L (8-55); AST (SGOT) 14 U/L (5-34); Albumin 3.7 g/dL (3.4-4.8); Alkaline Phosphatase 90 U/L (40-110); Anion Gap 15 mmol/L (10-20); BUN (Urea Nitrogen) 11 mg/dL (9.8-20.1); Bilirubin, Total 0.3 mg/dL (0.2-1.2); Calc. Creatinine Clearance 0 mL/min (70-130); Calcium 9.6 mg/dL (7.8-10.44); Carbon Dioxide 21 mmol/L (23-31); Chloride 107 mmol/L (98-107); Estimated GFR 76; Glucose 94 mg/dL (83-110); Lipase 16 U/L (8-78); Potassium 3.8 mmol/L (3.5-5.1); Protein, Total 6.7 g/dL (5.8-8.1); Sodium 139 mmol/L (136-145)
[2023-10-28 16:37] LABS: Troponin I Less than 0.010 ng/mL (< 0.028)
[2023-10-28 16:46] LABS: Bacteria/HPF None Seen HPF (None Seen); Bilirubin Negative (Negative); Blood, Urine 1+ (Negative); CAUTI Indications for Culture Pelvic or flank pain; Clarity Clear (Clear); Glucose, Urine (Dipstick) Normal (Negative); Ketone, Urine Trace mg/dL (Negative); Leukocyte Negative Leu/uL (Negative); Nitrite Negative (Negative); Protein, Urine (Dipstick) 10 mg/dL (Neg-Trace); RBC/HPF 0-3 HPF (0-3); Specific Gravity, Urine 1.015 (1.002-1.036); Squamous Epithelial None Seen HPF (0-3); Urobilinogen Normal mg/dL (Less than 2); WBC/HPF 0-3 HPF (0-3); pH, Urine 6.5 (5.0-9.0)
[2023-10-28 16:48] LABS: Urine Culture Reflex No No
[2023-10-28 17:20] LABS: Influenza A by NAA Not Detected (NotDetected); Influenza B by NAA Not Detected (NotDetected); SARS-CoV-2 NAA Rapid Test Not Detected (NotDetected)
== END 2023-10-28 18:30 | disposition home or self-care (01) ==
LOC: ERS 13:48
DX: E86.0 Dehydration (principal); I10 Essential (primary) hypertension; Z87.891 Personal history of nicotine dependence
CPT/HCPCS: 0240U; 71045; 71275; 81001; 83605; 83690; 83880; 84484; 85379; 87040; 87086; 93005; 99285; Q9967; 36415; 80053; 84443; 85025

== ENCOUNTER 2024-02-06 15:23 | Outpatient (CLI) | payer MEDICARE | END 2024-02-06 15:24 | disposition home or self-care (01) | LOC: BICRAD 15:23 | PROVIDERS: ATTEND Physician Assistant | DX: Z47.89 Encounter for other orthopedic aftercare (principal); Z98.1 Arthrodesis status; M47.812 Spondylosis without myelopathy or radiculopathy, cervical region | CPT/HCPCS: 72040 ==

== ENCOUNTER 2024-03-18 09:27 | Outpatient (CLI) | payer MEDICARE | END 2024-03-18 09:28 | disposition home or self-care (01) | LOC: SCSMRI 09:27 | PROVIDERS: ATTEND Nurse Practitioner Family | DX: M47.26 Other spondylosis with radiculopathy, lumbar region (principal); M51.16 Intervertebral disc disorders with radiculopathy, lumbar region; M47.815 Spondylosis without myelopathy or radiculopathy, thoracolumbar region; M47.817 Spondylosis without myelopathy or radiculopathy, lumbosacral region; M48.061 Spinal stenosis, lumbar region without neurogenic claudication; M48.07 Spinal stenosis, lumbosacral region; M41.9 Scoliosis, unspecified | CPT/HCPCS: 72148 ==

== ENCOUNTER 2025-01-06 08:35 | Emergency (ER) | payer MEDICARE | END 2025-01-06 09:44 | disposition home or self-care (01) | LOC: ERS 08:35 | DX: S86.912A Strain of unspecified muscle(s) and tendon(s) at lower leg level, left leg, initial encounter (principal); I10 Essential (primary) hypertension; Z87.891 Personal history of nicotine dependence; X58.XXXA Exposure to other specified factors, initial encounter ==

== ENCOUNTER 2025-01-13 08:37 | Outpatient (CLI) | payer MEDICARE | END 2025-01-13 08:38 | disposition home or self-care (01) | LOC: ULT 08:37 | PROVIDERS: ATTEND Internal Medicine Gastroenterology | DX: K22.10 Ulcer of esophagus without bleeding (principal); R13.10 Dysphagia, unspecified; K29.00 Acute gastritis without bleeding; R10.13 Epigastric pain | CPT/HCPCS: 76705 ==